=== PATIENT | female | born 1980 | race Caucasian/White ===

== ENCOUNTER → 2017-02-27 | Outpatient (CLI) | payer OTHER ==
[2017-02-27 17:17] LABS: HEMOGLOBIN 13.1 gm/dl (12.3-15.3); RED BLOOD COUNT 4.51 M/UL (4.00-5.10); WHITE BLOOD COUNT 17.8 K/UL (4.5-11.0)
== END ==
LOC: LAB 16:51
PROVIDERS: Nurse Practitioner
DX: R05 Cough (principal); R79.9 Abnormal finding of blood chemistry, unspecified
CPT/HCPCS: 36415; 85027

== ENCOUNTER → 2017-05-03 | Outpatient (CLI) | payer OTHER ==
[2017-05-03 16:03] LABS: HEMOGLOBIN 13.7 gm/dl (12.3-15.3); RED BLOOD COUNT 4.5 M/UL (4.00-5.10); WHITE BLOOD COUNT 15.1 K/UL (4.5-11.0)
[2017-05-03 16:46] LABS: BUN/CREATININE RATIO 7 (0-10)
== END ==
LOC: RAD 14:36
PROVIDERS: Nurse Practitioner
DX: M25.551 Pain in right hip (principal); M25.552 Pain in left hip; R05 Cough; R10.9 Unspecified abdominal pain; J98.4 Other disorders of lung
CPT/HCPCS: 36415; 71020; 73522; 80053; 82150; 83690; 85027